=== PATIENT | female | born 1980 | race Caucasian/White ===

== ENCOUNTER 2025-02-27 14:17 | Emergency (ER) | payer OTHER, BC, SELFPAY ==
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
[2025-02-27 14:36] VITALS: BP 128/76; PULSE 69; RESP 16; TEMP 36.6; O2SAT 99
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
== END 2025-02-27 15:55 | disposition home or self-care (01) ==
PROVIDERS: Emergency Provider Registered Nurse; PCP Physician Assistant
DX: M54.2 Cervicalgia (principal); V49.40XA Driver injured in collision with unspecified motor vehicles in traffic accident, initial encounter
CPT/HCPCS: 72040; 99203; G0463